=== PATIENT | male | born 2000 | race African-American/Black ===

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

== ENCOUNTER 2018-12-24 20:44 | Emergency (ER) | payer OTHER ==
[2018-12-24 20:55] VITALS: BP 139/71
--- NOTE | 2018-12-24 21:29 | ED Physician Documentation ---
PD HPI SKIN - Stated complaint Stated Complaint: MALE - Chief complaint Chief Complaint: Wound - History obtained from History obtained from: Patient, Family - History of Present Illness Timing - onset: Other (He had an itchy and nonpainful rash on his penis for the last few days it does not really bug him except for emotionally.) Review of Systems Constitutional: reports: Reviewed and negative Nose: reports: Reviewed and negative Cardiac: reports: Reviewed and negative PD PAST MEDICAL HISTORY - Past Surgical History Past Surgical History: Yes HEENT: Other - Present Medications Home Medications: Ambulatory Orders Medication Instructions Recorded Confirmed No Known Home Medications 11/13/17 11/13/17 - Allergies Allergies/Adverse Reactions: Allergies Allergy/AdvReac Type Severity Reaction Status Date / Time No Known Drug Allergies Allergy Verified 12/24/18 20:55 - Social History Does the pt smoke?: Yes Smoking Status: Current every day smoker Does the pt drink ETOH?: Yes Does the pt have substance abuse?: No - Immunizations Immunizations are current?: Yes PD ED PE NORMAL - Vitals Vital signs reviewed: Yes - General General: Alert and oriented X 3, No acute distress - Neuro Neuro: Alert and oriented X 3, Normal speech PD ED PE EXPANDED - Male Male visual: 1 - rash (Small area of dry skin, pretty unimpressive) 2 - rash (He notes sebaceous glands here which I assured him were normal.) Results - Vitals Vitals: Vital Signs - 24 hr 12/24/18 20:52 Temperature 36.8 C Heart Rate 65 Respiratory 16 Rate Blood Pressure 139/71 H O2 Saturation 100 Oxygen O2 Source Room air Departure - Departure Disposition: 01 Home, Self Care Clinical Impression: Penile rash Condition: Good Record reviewed to determine appropriate education?: Yes Comments: The rash looks completely Benign and not consistent with any particular disease process. He can put some lotion on it such as set of fill. Return if worse.
== END 2018-12-24 21:38 | disposition home or self-care (01) ==
LOC: ED 20:44
DX: R21 Rash and other nonspecific skin eruption (principal); F17.200 Nicotine dependence, unspecified, uncomplicated
CPT/HCPCS: 99281; 99282

== ENCOUNTER 2019-01-15 01:17 | Emergency (ER) | payer OTHER ==
[2019-01-15] MEDS ORDERED: BUTALB/ACETAM/CAFF 50/325/40MG TABLET PO STA (01:51)
[2019-01-15] MEDS ORDERED: ONDANSETRON ODT 4 MG TABLET TL STA (01:51)
--- NOTE | 2019-01-15 01:52 | ED Physician Documentation ---
History of Present Illness - Stated complaint Stated Complaint: PIEDRA/NAUSEA/DIARRHEA/SORE THROAT/AB PX - Chief complaint Chief Complaint: General - History obtained from History obtained from: Patient, Family - History of Present Illness Timing: How many days ago (2) Pain level max: 7 Pain level now: 5 - Additonal information Additional information: 18-year-old male with headache, sore throat, nausea and mild cough. Seen earlier today at the [employer] [facility] for same. Took Motrin and pseudoephedrine without relief. No vomiting. Has had some diarrhea. Has had several sick contacts with similar. Nonproductive cough. No abdominal pain Review of Systems Constitutional: reports: Fever Nose: reports: Rhinorrhea / runny nose, Congestion Throat: reports: Sore throat Skin: denies: Rash Musculoskeletal: denies: Neck pain, Back pain Neurologic: denies: Seizure, Confused, Altered mental status PD PAST MEDICAL HISTORY - Past Medical History Past Medical History: No - Past Surgical History Past Surgical History: Yes HEENT: Other - Present Medications Home Medications: Ambulatory Orders Medication Instructions Recorded Confirmed Meloxicam [Mobic] 7.5 mg PO BID PRN #20 tablet 01/15/19 Ondansetron Odt [Zofran] 4 mg TL Q6H PRN #10 tablet 01/15/19 - Allergies Allergies/Adverse Reactions: Allergies Allergy/AdvReac Type Severity Reaction Status Date / Time No Known Drug Allergies Allergy Verified 12/24/18 20:55 - Living Situation Living Situation: reports: With family Living Arrangement: reports: At home - Social History Does the pt smoke?: Yes Smoking Status: Current every day smoker Does the pt drink ETOH?: Yes Does the pt have substance abuse?: No - Immunizations Immunizations are current?: Yes - POLST Patient has POLST: No PD ED PE NORMAL - Vitals Vital signs reviewed: Yes - General General: Alert and oriented X 3, No acute distress, Well developed/nourished - HEENT HEENT: PERRL, Ears normal, Moist mucous membranes, Other (Mild posterior oropharyngeal erythema without tonsillar exudates) - Neck Neck: Supple, no meningeal sign - Cardiac Cardiac: RRR, Strong equal pulses - Respiratory Respiratory: No respiratory distress, Clear bilaterally - Abdomen Abdomen: Soft, Non tender, Non distended - Back Back: No spinal TTP - Derm Derm: Warm and dry, No rash - Extremities Extremities: No edema - Neuro Neuro: Alert and oriented X 3 - Psych Psych: Normal mood, Normal affect Results - Vitals Vitals: Vital Signs - 24 hr 01/15/19 01/15/19 01:22 02:29 Temperature 36.6 C 36.6 C Heart Rate 86 84 Respiratory 14 14 Rate Blood Pressure 138/83 H 130/84 H O2 Saturation 99 100 Oxygen O2 Source Room air - Labs Labs: Laboratory Tests 01/15/19 01:30 Group A Strep Rapid Negative PD MEDICAL DECISION MAKING - ED course Complexity details: reviewed results, re-evaluated patient, considered differential, d/w patient, d/w family ED course: Patient is very well-appearing, nontoxic. Feels better after Fioricet and Zofran. Tolerating p.o. without difficulty. We will continue supportive care and follow-up with his doctor. Appears to be a viral syndrome. Patient counseled regarding signs and symptoms for which I believe and urgent re- evaluation would be necessary. Patient with good understanding of and agreement to plan and is comfortable going home at this time This document was made in part using voice recognition software. While efforts are made to proofread this document, sound alike and grammatical errors may occur. Departure - Departure Disposition: 01 Home, Self Care Clinical Impression: Viral syndrome Condition: Good Instructions: ED Viral Syndrome Follow-Up: [facility]ALLON LAZAR [Primary Care Provider] - Within 3 Days Prescriptions: Meloxicam [Mobic] 7.5 mg PO BID PRN #20 tablet PRN Reason: Pain Ondansetron Odt [Zofran] 4 mg TL Q6H PRN #10 tablet PRN Reason: Nausea / Vomiting Comments: Return if you worsen. Go home and rest. Drink plenty of fluids. This should improve over the next 2 to 3 days. Forms: Activity restrictions
[2019-01-15 02:30] VITALS: BP 130/84
== END 2019-01-15 02:32 | disposition home or self-care (01) ==
LOC: ED 01:17
DX: B34.9 Viral infection, unspecified (principal); F17.200 Nicotine dependence, unspecified, uncomplicated
CPT/HCPCS: 87070; 87430; 99283; 99284; A9270; Q0162

== ENCOUNTER 2019-02-01 09:50 | Emergency (ER) | payer OTHER ==
[2019-02-01 12:03] LABS: BILIRUBIN,URINE NEGATIVE (NEGATIVE); GLUCOSE, URINE (UA) NEGATIVE (NEGATIVE); KETONES,URINE (UA) NEGATIVE (NEGATIVE); LEUKOCYTE ESTERASE, URINE TRACE (NEGATIVE); NITRITE,URINE NEGATIVE (NEGATIVE); OCCULT BLOOD,URINE NEGATIVE (NEGATIVE); PROTEIN,URINE NEGATIVE (NEGATIVE); UROBILINOGEN,URINE 0.2 (NORMAL) E.U./dL (NORMAL)
[2019-02-01 12:07] LABS: CLARITY,URINE CLEAR (CLEAR)
[2019-02-01 12:21] LABS: RBC,URINE 0-5 /HPF (0-5)
[2019-02-01 12:22] LABS: BACTERIA,URINE Rare /HPF (None Seen); SQUAMOUS EPITHELIAL CELL,UR RARE Squamous (<= Few)
[2019-02-01] MEDS ORDERED: cefTRIAXone 250 MG VIAL IM STA (12:25)
[2019-02-01] MEDS ORDERED: LIDOCAINE 1% 2 ML VIAL MC ONE (12:25)
[2019-02-01] MEDS ORDERED: DOXYCYCLINE 100 MG TABLET PO STA (12:26)
--- NOTE | 2019-02-01 12:28 | ED Physician Documentation ---
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 He reports discomfort at the tip of his penis while urinating. His symptoms started "a few days ago." He denies any penile discharge, abdominal pain, or fever. He has a past history of urethritis. He reports monogamous relationship with his . Review of Systems Constitutional: denies: Fever Throat: denies: Sore throat Cardiac: denies: Chest pain / pressure Respiratory: denies: Dyspnea, Cough GI: denies: Abdominal Pain, Nausea, Vomiting : reports: Dysuria. denies: Frequency, Hematuria, Discharge, Testicular pain Skin: denies: Rash Musculoskeletal: denies: Neck pain Neurologic: denies: Headache PD PAST MEDICAL HISTORY - Past Medical History Endocrine/Autoimmune: None - Past Surgical History Past Surgical History: Yes HEENT: Other - Present Medications Home Medications: Ambulatory Orders Medication Instructions Recorded Confirmed Doxycycline Hyclate 100 mg PO BID #20 capsule 02/01/19 - Allergies Allergies/Adverse Reactions: Allergies Allergy/AdvReac Type Severity Reaction Status Date / Time No Known Drug Allergies Allergy Verified 02/01/19 09:54 - Social History Does the pt smoke?: Yes Smoking Status: Current every day smoker Does the pt drink ETOH?: Yes Does the pt have substance abuse?: No - Immunizations Immunizations are current?: Yes - POLST Patient has POLST: No PD ED PE NORMAL - Vitals Vital signs reviewed: Yes (normal) - General General: Alert and oriented X 3, Well developed/nourished - HEENT HEENT: Atraumatic - Cardiac Cardiac: RRR - Respiratory Respiratory: No respiratory distress - Abdomen Abdomen: Soft, Non tender - Back Back: No CVA TTP - Derm Derm: No rash - Neuro Neuro: Alert and oriented X 3, No motor deficit, Normal speech PD ED PE EXPANDED - Male Male : Normal Exam, Circumcised, Testes descended arnulfo, Cultures sent Results - Vitals Vitals: Oxygen O2 Source Room air - Labs Labs: Microbiology 02/01/19 10:00 Urine Culture - Final Urine,Clean Catch No growth Laboratory Tests 02/01/19 02/01/19 10:00 10:00 Urine Color YELLOW Urine Clarity CLEAR Urine pH 6.0 Ur Specific [place] 1.020 Urine Protein NEGATIVE Urine Glucose (UA) NEGATIVE Urine Ketones NEGATIVE Urine Occult Blood NEGATIVE Urine Nitrite NEGATIVE Urine Bilirubin NEGATIVE Urine Urobilinogen 0.2 (NORMAL) Ur Leukocyte Esterase TRACE H Urine RBC 0-5 Urine WBC 0-3 Ur Squamous Epith Cells RARE Squamous Urine Bacteria Rare Ur Microscopic Review INDICATED Urine Culture Comments INDICATED Chlam trachomat DNA PCR NEGATIVE N.gonorrhoeae DNA (PCR) NEGATIVE T. vaginalis (PCR) NEGATIVE PD MEDICAL DECISION MAKING - ED course Complexity details: reviewed old records, reviewed results, considered differential, d/w patient ED course: The patient will be treated presumptively for urethritis. His urinalysis is negative. Cultures for GC and chlamydia are pending. Treatment in the emergency department included administration of ceftriaxone 250 mg IM, and doxycycline 100 mg orally. He will be discharged with prescription for doxycycline. I discussed with him the presumptive diagnosis, antibiotic treatment and follow-up for culture results, as well as potentially worrisome signs or symptoms that should prompt reevaluation in the emergency department. Departure - Departure Disposition: 01 Home, Self Care Clinical Impression: Urethritis Instructions: ED Urethritis Infec Vs Inflam Male Follow-Up: [facility] [Provider Group] Prescriptions: Doxycycline Hyclate 100 mg PO BID #20 capsule Comments: Take doxycycline twice daily as prescribed. Follow-up with your primary physician within 1 week. Call to schedule an appointment. Refrain from sexual intercourse until the results of the urethral swab are known, which usually takes 2 to 3 days. Return to the emergency department if you develop increasing pain, difficulty with urination, or otherwise worsening symptoms. Discharge Date/Time: 02/01/19 12:44
[2019-02-01 12:45] VITALS: BP 130/66
[2019-02-01 19:04] LABS: TRICHOMONAS VAGINALIS DNA NEGATIVE (NEGATIVE)
== END 2019-02-01 12:44 | disposition home or self-care (01) ==
LOC: ED 09:50
DX: N34.2 Other urethritis (principal); F17.200 Nicotine dependence, unspecified, uncomplicated
CPT/HCPCS: 81001; 87086; 87491; 87591; 87661; 99283; 99284; A9270; 81003

== ENCOUNTER 2019-05-15 13:39 | Emergency (ER) | payer OTHER ==
[2019-05-15 14:12] VITALS: BP 127/83
[2019-05-15 14:29] LABS: EOSINOPHILS # (AUTO) 0.1 10^3/uL (0.0-0.7); EOSINOPHILS % (AUTO) 1.2 %; HGB - HEMOGLOBIN 15.8 g/dL (14.0-18.0); LYMPHOCYTES # (AUTO) 2.2 10^3/uL (1.5-3.5); LYMPHOCYTES % (AUTO) 53.5 %; MEAN CORPUSCULAR HEMOGLOBIN 27.8 pg (27.0-31.0); MEAN CORPUSCULAR HGB CONC 32.3 g/dL (32.0-36.0); MEAN CORPUSCULAR VOLUME 86.1 fL (80.0-94.0); MEAN PLATELET VOLUME 9.4 fL (7.4-11.4); MONOCYTES # (AUTO) 0.4 10^3/uL (0.0-1.0); MONOCYTES % (AUTO) 8.9 %; NEUTROPHILS # (AUTO) 1.4 10^3/uL (1.5-6.6); NEUTROPHILS % (AUTO) 35.2 %; PLT - PLATELET COUNT 221 10^3/uL (130-450); RED BLOOD COUNT 5.68 10^6/uL (4.70-6.10); RED CELL DISTRIBUTION WIDTH 14.2 % (12.0-15.0)
[2019-05-15 14:42] LABS: ALBUMIN 4.6 g/dL (3.2-5.5); ALBUMIN/GLOBULIN RATIO 1.7 (1.0-2.2); BILIRUBIN,TOTAL 0.6 mg/dL (0.2-1.0); CALCIUM 9.3 mg/dL (8.5-10.3); CREATININE 0.9 mg/dL (0.6-1.2); TOTAL PROTEIN 7.3 g/dL (6.7-8.2)
[2019-05-15 16:23] LABS: BILIRUBIN,URINE NEGATIVE (NEGATIVE); GLUCOSE, URINE (UA) NEGATIVE (NEGATIVE); KETONES,URINE (UA) NEGATIVE (NEGATIVE); LEUKOCYTE ESTERASE, URINE NEGATIVE (NEGATIVE); NITRITE,URINE NEGATIVE (NEGATIVE); OCCULT BLOOD,URINE NEGATIVE (NEGATIVE); PROTEIN,URINE NEGATIVE (NEGATIVE); UROBILINOGEN,URINE 0.2 (NORMAL) E.U./dL (NORMAL)
[2019-05-15 16:31] LABS: CLARITY,URINE CLEAR (CLEAR)
--- NOTE | 2019-05-15 16:54 | ED Physician Documentation ---
History of Present Illness - Stated complaint Stated Complaint: BACK PX - Chief complaint Chief Complaint: Abd Pain - History obtained from History obtained from: Patient - History of Present Illness Timing: How many days ago (several) Pain level max: 4 Pain level now: 1 - Additonal information Additional information: 18-year-old male presents to the emergency department with intermittent right flank pain for the past several days. Seems to be worse with rest and better when he gets up and starts moving. Does not recall any specific injury. Did recently have his PRT for the [employer]. Review of Systems Constitutional: denies: Fever, Chills Cardiac: denies: Chest pain / pressure Respiratory: denies: Cough GI: denies: Nausea, Vomiting, Diarrhea : denies: Dysuria, Frequency, Hesitancy, Hematuria Skin: denies: Rash Musculoskeletal: denies: Neck pain Neurologic: denies: Focal weakness, Numbness, Confused PD PAST MEDICAL HISTORY - Past Medical History Past Medical History: No Endocrine/Autoimmune: None - Past Surgical History Past Surgical History: Yes HEENT: Other - Present Medications Home Medications: Ambulatory Orders Medication Instructions Recorded Confirmed Doxycycline Hyclate 100 mg PO BID #20 capsule 02/01/19 - Allergies Allergies/Adverse Reactions: Allergies Allergy/AdvReac Type Severity Reaction Status Date / Time No Known Drug Allergies Allergy Verified 05/15/19 14:12 - Social History Does the pt smoke?: Yes Smoking Status: Current every day smoker Does the pt drink ETOH?: Yes Does the pt have substance abuse?: No - Immunizations Immunizations are current?: Yes - POLST Patient has POLST: No PD ED PE NORMAL - Vitals Vital signs reviewed: Yes - General General: Alert and oriented X 3, No acute distress, Well developed/nourished - HEENT HEENT: Moist mucous membranes - Neck Neck: Supple, no meningeal sign - Cardiac Cardiac: RRR, Strong equal pulses - Respiratory Respiratory: No respiratory distress, Clear bilaterally - Abdomen Abdomen: Soft, Non tender, Non distended - Back Back: No spinal TTP, Other (Normal examination of the right flank and the left flank. Normal skin. No ecchymosis. No CVA tenderness.) - Derm Derm: Warm and dry - Extremities Extremities: No edema, No calf tenderness / cord - Neuro Neuro: Alert and oriented X 3, No motor deficit, No sensory deficit - Psych Psych: Normal mood, Normal affect Results - Vitals Vitals: Oxygen O2 Source Room air - Labs Labs: Laboratory Tests 05/15/19 05/15/19 05/15/19 14:18 14:24 14:24 WBC 4.0 L RBC 5.68 Hgb 15.8 Hct 48.9 MCV 86.1 MCH 27.8 MCHC 32.3 RDW 14.2 Plt Count 221 MPV 9.4 Neut # (Auto) 1.4 L Lymph # (Auto) 2.2 Wood # (Auto) 0.4 Eos # (Auto) 0.1 Baso # (Auto) 0.0 Absolute Nucleated RBC 0.00 Nucleated RBC % 0.0 Sodium 140 Potassium 4.5 Chloride 102 Carbon Dioxide 30 Anion Gap 8.0 BUN 8 Creatinine 0.9 Estimated GFR (MDRD) 130 Glucose 90 Calcium 9.3 Total Bilirubin 0.6 AST 46 H ALT 22 Alkaline Phosphatase 46 Total Protein 7.3 Albumin 4.6 Globulin 2.7 Albumin/Globulin Ratio 1.7 Lipase 35 Urine Color YELLOW Urine Clarity CLEAR Urine pH 8.0 H Ur Specific [place] 1.015 Urine Protein NEGATIVE Urine Glucose (UA) NEGATIVE Urine Ketones NEGATIVE Urine Occult Blood NEGATIVE Urine Nitrite NEGATIVE Urine Bilirubin NEGATIVE Urine Urobilinogen 0.2 (NORMAL) Ur Leukocyte Esterase NEGATIVE Ur Microscopic Review NOT INDICATED Urine Culture Comments NOT INDICATED PD MEDICAL DECISION MAKING - ED course Complexity details: reviewed results, considered differential, d/w patient ED course: Unclear etiology of the patient's symptoms. No acute laboratory testing is. No acute urinalysis abnormalities. Does not appear consistent with a ureteral stone. Likely that this is muscular in origin. Will continue Motrin and Tylenol as needed at home. The pain seems to improve as his muscles loosen up. Patient counseled regarding signs and symptoms for which I believe and urgent re-evaluation would be necessary. Patient with good understanding of and agreement to plan and is comfortable going home at this time This document was made in part using voice recognition software. While efforts are made to proofread this document, sound alike and grammatical errors may occur. Departure - Departure Disposition: 01 Home, Self Care Clinical Impression: Flank pain Condition: Good Instructions: ED Flank Pain Uncertain Cause Follow-Up: [facility] [Provider Group] - Within 1 week Comments: The cause of your symptoms is unclear today. Your laboratory testing is normal. Your urinalysis does not show any bleeding or infection. Continue Motrin and Tylenol as needed for pain and follow-up with your doctor for further care. Discharge Date/Time: 05/15/19 17:00
== END 2019-05-15 17:00 | disposition home or self-care (01) ==
LOC: ED 13:39
DX: R10.9 Unspecified abdominal pain (principal); F17.200 Nicotine dependence, unspecified, uncomplicated
CPT/HCPCS: 36415; 80053; 81001; 81003; 83690; 85025; 87086; 99282; 99283

== ENCOUNTER 2020-09-28 08:00 | Outpatient (CLI) | payer OTHER ==
[2020-09-29 00:20] LABS: CHLAMYDIA TRACHOMATIS DNA NEGATIVE (NEGATIVE); NEISSERIA GONORRHOEAE DNA NEGATIVE (NEGATIVE)
== END 2020-09-28 23:59 | disposition home or self-care (01) ==
LOC: LAB.R 08:00
PROVIDERS: ATTEND Family Medicine
DX: R30.0 Dysuria (principal)
CPT/HCPCS: 87491; 87591; 87661

== ENCOUNTER 2021-04-15 07:33 | Outpatient (CLI) | payer OTHER | END 2021-04-15 23:59 | disposition home or self-care (01) | LOC: LAB.N 07:33 | PROVIDERS: ATTEND Nurse Practitioner | DX: R07.0 Pain in throat (principal); Z20.822 Contact with and (suspected) exposure to COVID-19 | CPT/HCPCS: 87070 ==

== ENCOUNTER 2022-10-18 11:00 | Outpatient (CLI) | payer OTHER ==
[2022-10-19 15:27] LABS: CHLAMYDIA TRACHOMATIS DNA NEGATIVE (NEGATIVE); NEISSERIA GONORRHOEAE DNA NEGATIVE (NEGATIVE)
== END 2022-10-18 11:15 | disposition home or self-care (01) ==
LOC: LAB.N 11:00
PROVIDERS: ATTEND Specialist
DX: R30.0 Dysuria (principal)
CPT/HCPCS: 87086; 87491; 87591; 87661